=== PATIENT | female | born 1980 | race Caucasian/White ===

== ENCOUNTER 2019-07-26 22:01 | Emergency (ER) | payer OTHER ==
[2019-07-26 22:14] VITALS: BP 124/83; PULSE 60; TEMP 98.5; BMI 27.3
[2019-07-26] MEDS ORDERED: ACETAMINOPHEN 325 MG TABLET (FP) PO ONE (22:33)
[2019-07-26] MEDS ORDERED: ACETAMINOPHEN 325 MG TABLET (FP) ONE (22:34)
--- NOTE | 2019-07-26 22:48 | PDOC ---
Documentation entered by Debora Thomas SCRIBE, acting as scribe for Rocío Espino MD. Rocío Espino MD: This documentation has been prepared by the Martha bradley Adrianna, SCRIBE, under my direction and personally reviewed by me in its entirety. I confirm that the documentation accurately reflects all work, treatment, procedures, and medical decision making performed by me. History of Present Illness - General Chief Complaint: Pain, Acute Stated Complaint: FELL YESTERDAY, HIT HEAD AND RIGHT KNEE Time Seen by Provider: 07/26/19 22:06 - History of Present Illness Initial Comments: 07/26/19 22:32 38 yo F s/p trip and fall landed forward hitting right side of her head and right knee. states she was playing with her friend and their kids. c/o pain. happened yesterday. no loc no n/v no f/c knee worse with palpation. ambulating without difficulty. today has mild headache and lateral right neck pain. pt states she is not , currently menstruating. took advil around 5 pm. noted small bruising around knee today. 07/26/19 22:35 Past History - Past Medical History Allergies/Adverse Reactions: Allergies Allergy/AdvReac Type Severity Reaction Status Date / Time No Known Allergies Allergy Verified 07/26/19 22:03 Home Medications: Ambulatory Orders Ibuprofen [Motrin -] 600 mg PO TID PRN #90 tablet 07/26/19 Review of Systems - Review of Systems Constitutional: No: Chills, Diaphoresis, Fever HEENTM: No: Eye Pain, Blurred Vision Respiratory: No: Cough, Orthopnea, Shortness of Breath Cardiac (ROS): No: Chest Pain, Edema, Irregular Heart Rate Musculoskeletal: Yes: Joint Pain. No: Back Pain, Gout Integumentary: Yes: Bruising. No: Change in Color Neurological: No: Headache, Numbness Psychiatric: No: Frequent Crying, Stressors All Other Systems: Reviewed and Negative *Physical Exam - Vital Signs Last Vital Signs Temp Pulse Resp BP Pulse Ox 98.5 F 60 16 124/83 100 07/26/19 22:05 07/26/19 22:05 07/26/19 22:05 07/26/19 22:05 07/26/19 22:05 - Physical Exam Comments: 07/26/19 22:42 awake alert nad head atraumatic. mild ttp over right parietooccipital scalp. no palp hematoma. no skull defect. no midline cervical spine tenderness. right paraspinal trapezial spasm. ttp. no mildline t/l/s spine tenderness. lungs clear bilat heart rrr no mrg abd nt nd ext wwp. right knee with medial infrpatellar eccymosis. no laxity. neg ant post drawer. from. no crepitus over patella. ankle/ hip NT FROM. GCS 15 otherwise skin intact. Medical Decision Making - Medical Decision Making 07/26/19 22:29 38 yo F s/p trip and fall landed forward hitting right side of her head and right knee. c/o pain. happened yesterday. no loc no n/v no f/c knee worse with palpation. ambulating without difficulty . due to mechanism no loc, 24 hrs later, no head ct necessary. d/w pt regarding risk and benefit of radiation. right knee with eccymosis will obtain xray. tylenol given for pain. 07/26/19 22:40 *DC/Admit/Observation/Transfer Diagnosis at time of Disposition: Contusion of knee, Head injury - Discharge Dispostion Disposition: HOME Condition at time of disposition: Improved Decision to Admit order: No - Prescriptions Prescriptions: Ibuprofen [Motrin -] 600 mg PO TID PRN #90 tablet PRN Reason: Pain - Referrals Referrals: Federico Mathew MD [Staff Physician] - - Patient Instructions Printed Discharge Instructions: Head Injury (Alternative Therapy), Contusion Additional Instructions: you will be sore for up to one week. you can take ibuprofen 600 mg every 8 hrs as needed for pain. return for any vomiting, confusionn, worsening symptoms or any concerns. your xray of your knee is without any broken bones or fractures. ice to reduce swelling and pain intermittently for 48 hours. follow up with your regular doctor. you can also follow up with an orthopedist. see referral information for Dr Mathew. orthpedist. call to schedule to be seen at the [place] [facility]. - Post Discharge Activity
== END 2019-07-26 23:29 | disposition home or self-care (01) ==
LOC: FER 22:01
DX: S09.90XA Unspecified injury of head, initial encounter (principal); S80.01XA Contusion of right knee, initial encounter; W01.0XXA Fall on same level from slipping, tripping and stumbling without subsequent striking against object, initial encounter; Y93.89 Activity, other specified; Y92.89 Other specified places as the place of occurrence of the external cause
CPT/HCPCS: 73560-TC-RT-FY; 99281-25